=== PATIENT | male | born 1960 | race Caucasian/White ===

== ENCOUNTER 2022-10-01 11:48 | Emergency (ER) | payer MEDICARE, BC ==
[2022-10-01] VITALS (10 sets, daily range): BP systolic 125–145; BP diastolic 87–103
[~2022-10-01] VITALS: Ht 167.6 cm; Wt 93.0 kg
[2022-10-01] MEDS ORDERED: LISINOPRIL10 MG PO (12:06)
[2022-10-01] MEDS ORDERED: ATORVASTATIN CA40 MG PO (12:06)
[2022-10-01 12:39] LABS: BASO% 1.1 % (0-3); EOS% 0.8 % (0-8); HEMATOCRIT 46.8 % (39.0-50.0); HEMOGLOBIN 16.4 g/dl (14.0-18.0); LYMPH% 36.9 % (15-41); MEAN CELL VOLUME 91.9 fL CALC (80.0-100.0); MEAN CORPUSCULAR HGB 32.2 pG CALC (26.0-32.0); MONO% 17.7 % (2-13); NEUT# 2.06 thou/uL (1.82-7.42); NEUT% 43.5 % (42-76); RED BLOOD COUNT 5.09 mill/uL (4.70-6.10); RED CELL DISTRI WIDTH 12.4 % (11.5-15.5)
[2022-10-01 12:44] LABS: ALBUMIN 4.5 g/dL (3.2-5.0); ALKALINE PHOSPHATASE 68 u/l (38-126); ANION GAP 10 (6-22 (CALC)); BILIRUBIN, TOTAL 0.8 mg/dL (0.0-1.4); BUN 12 mg/dL (8-23); BUN/CREATININE RATIO 12 (12-20 (CALC)); CARBON DIOXIDE 28 mmol/l (22-30); CHLORIDE 103 mmol/l (95-108); CREATININE 1.1 mg/dL (0.7-1.3); GFR FOR AFR.AMER. > 60 ML/MIN (>=60 (CALC)); GFR OTHER RACES > 60 ML/MIN (>=60 (CALC)); POTASSIUM 4.4 mmol/l (3.5-5.1); SGOT/AST 44 u/l (19-48); SODIUM 137 mmol/l (137-146); TOTAL PROTEIN 7.9 g/dL (6.3-8.2)
[2022-10-01] MEDS ORDERED: PAXLOVID PO (15:53)
[2022-10-01] MEDS ORDERED: ZOFRAN4 MG/TAB PO (15:53)
== END 2022-10-01 16:37 | disposition home or self-care (01) ==
LOC: ED 11:48
PROVIDERS: Family Medicine
DX: U07.1 COVID-19 (principal); R07.9 Chest pain, unspecified; R05.9 Cough, unspecified; R50.9 Fever, unspecified; I10 Essential (primary) hypertension; E66.9 Obesity, unspecified; E78.5 Hyperlipidemia, unspecified